=== PATIENT | male | born 1965 | race Two or more races ===

== ENCOUNTER 2016-06-19 18:26 | Inpatient (IN) | payer MEDICARE, MEDICAID ==
[2016-06-19] MEDS ORDERED: Sodium Chloride 0.9% 1,000 ML IV ONE ×2 (18:58→19:42)
--- NOTE | 2016-06-19 20:23 | ED Physician Chart ---
Chief Complaint/HPI - Patient Information Date Seen:: 06/19/16 Time Seen:: 18:30 Chief Complaint:: nausea History of Present Illness:: 50-year-old male history of diabetes and end-stage renal disease on dialysis, presents with acute, constant, moderate, nausea with associated vomiting that started about 3-4 hours prior to arrival. Allergies:: Allergies Allergy/AdvReac Type Severity Reaction Status Date / Time No Known Allergies Allergy Verified 06/19/16 18:46 Vitals:: Vital Signs - 8 hr 06/19/16 18:47 Temp 98.5 F HR 89 RR 16 BP 200/91 O2 Sat % 97 Historian:: Patient Review:: Nurse's Note Reviewed Review of Systems - Review of Systems Other: Complete system review otherwise unremarkable except as noted in HPI. Past Medical History - Past Medical History Past Medical History: HTN, DM, ESRD, Other (blindness) Family History: None Social History: Non Smoker, No Alcohol, No Drug Use, Care Facility Surgical History: other (venous shunt) Psychiatricy History: None Medication: Reviewed Family Medical History - Family Member Mother History Unknown: Yes Ethnicity: Living Status: Still Living Hx Family Cancer: No Hx Family Coronary Artery Disease: No Hx Family Congestive Heart Failure: Yes Hx Family Hypertension: Yes Hx Family Diabetes: Yes Hx Family Seizures: No Hx Family Dementia: No Hx Family AIDS: No Hx Family HIV: No Hx Family COPD: No Hx Family Hepatitis: No Hx Family Psychiatric Problems: No Hx Family Tuberculosis: No Physical Exam - Physical Examination Other:: INITIAL VITAL SIGNS: Reviewed by me GENERAL: Alert and interactive. No acute distress HEAD: Head is normocephalic and atraumatic EYES: EOMI. . No scleral icterus. No conjunctival injection ENT: Moist mucous membranes. NECK: Supple. No masses. Full range of motion RESPIRATORY: No tachypnea. Clear breath sounds bilaterally. No wheezing, rales, or rhonchi CV: Regular rate and rhythm. No murmurs, rubs, or gallops ABDOMEN: Soft, non-distended, non-tender. No guarding. No rebound. No masses. EXTREMITIES: Bilateral lower extremity amputations. SKIN: Warm and dry. No obvious rashes. NEUROLOGIC: Alert and oriented. Face is symmetric. Speech is normal. Moves all extremities equally. Motor and sensory distally intact. Labs/Radiology/EKG Results - Lab Results Results: Lab Results 06/19/16 06/19/16 06/19/16 Range/Units 20:14 20:14 20:48 WBC 3.2 L D (4.8-10.8) Th/cmm RBC 2.10 L (4.30-5.70) Mil/cmm Hgb 6.5 L* (13.2-17.3) gm/dL Hct 19.1 L* D (39.0-49.0) % MCV 90.8 (80-99) fl MCH 30.7 H (26.0-30.0) pg MCHC Differential 33.8 (28.0-36.0) pg RDW 15.6 (11.5-20.0) % Plt Count 47 L D (150-400) Th/cmm MPV 8.3 fl Band Neutrophils % 1 (0-10) % Neutrophils (Manual) 81 H (40-80) % Lymphocytes 11 L (20-50) % Monocytes 5 (2-10) % Eosinophils 1 (0-5) % Basophils 1 (0-3) % Platelet Estimate DECREASED PLATELETS (NORMAL) Platelet Morphology NORMAL (NORMAL) Anisocytosis 1+ RBC Morph Micro Appear ABNORMAL (NORMAL) Sodium 142 (136-145) mEq/L Potassium 1.7 L* (3.5-5.1) mEq/L Chloride 124 H (98-107) mEq/L Carbon Dioxide 13.1 L (21.0-31.0) mEq/L Anion Gap 6.6 L (7.0-16.0) BUN 14 (7-25) mg/dL Creatinine 1.6 H (0.7-1.3) mg/dL Est GFR ( Amer) 59.4 (>90) ml/min Est GFR (Non-Af Amer) 49.1 ml/min BUN/Creatinine Ratio 8.8 Glucose 122 H (70-105) mg/dL Whole Bld Lactic Acid 0.41 L (0.60-2.00) mmol/L Calcium 4.0 L* (8.6-10.3) mg/dL Total Bilirubin 0.4 (0.3-1.0) mg/dL AST 9 L (13-39) U/L ALT 8 (7-52) U/L Alkaline Phosphatase 108 H (34-104) U/L Total Protein 3.3 L (6.0-8.3) gm/dL Albumin 1.6 L (4.2-5.5) gm/dL Globulin 1.7 gm/dL Albumin/Globulin Ratio 0.9 L (1.0-1.8) ED Septic Shock - . Is Septic Shock (SBP<90, OR Lactate>4 mmol\L) present?: No - <6hrs of presentation: Vital Signs: Vital Signs - 8 hr 06/19/16 18:47 Temp 98.5 F HR 89 RR 16 BP 200/91 O2 Sat % 97 Reassessment (Disposition) - Reassessment Reassessment:: This is a renal dialysis patient. Has presented with acute nausea vomiting. Has associated cough. He has severe anemia of 6.5. Has severe hypokalemia and hypocalcemia. Gave oral potassium. He is hemodynamically stable at this point , however he will likely transfusion. He'll need to be closely monitored. Discussed the case with his primary care physician who expressed good understanding of the case. He will admit the patient to his service for further workup and treatment. Reassessment Condition:: Unchanged - Diagnosis Diagnosis:: Severe anemia Severe hypokalemia Severe hypocalcemia Diabetes mellitus Hypertension End-stage renal disease Leukopenia - Patient Disposition Discharge/Transfer:: Acute Care w/in this hosp Admitted to:: Med/Surg Admitting Medical Physician:: Wolfgang Araiza Time:: 20:34 Condition at Disposition:: Stable ED Discharge Plan - Patient Disposition Admit/Discharge/Transfer: Acute Care w/in this hosp
[2016-06-19 20:24] LABS: MEAN CELL VOLUME 90.8 fl (80-99); MEAN CORPUSCULAR HEMOGLOBIN 30.7 pg (26.0-30.0); MEAN CORPUSCULAR HGB CONC 33.8 pg (28.0-36.0); MEAN PLATELET VOLUME 8.3 fl; RED CELL DISTRIBUTION WIDTH 15.6 % (11.5-20.0); WHITE BLOOD COUNT 3.2 Th/cmm (4.8-10.8)
[2016-06-19 20:31] LABS: HEMATOCRIT 19.1 % (39.0-49.0); HEMOGLOBIN 6.5 gm/dL (13.2-17.3)
[2016-06-19 20:32] LABS: PLATELET COUNT 47 Th/cmm (150-400)
[2016-06-19] MEDS ORDERED: Prochlorperazine 5 mg/mL 2mL Vial IVP STA (20:33)
[2016-06-19] MEDS ORDERED: Dexamethasone Sodium Phos 4 mg/mL Vial IVP STA (20:34)
[2016-06-19] MEDS ORDERED: Metoclopramide 5 mg/mL 2mL Vial IVP STA (20:34)
[2016-06-19 20:36] LABS: ALB/GLOB RATIO 0.9 (1.0-1.8); ANION GAP 6.6 (7.0-16.0); BILIRUBIN,TOTAL 0.4 mg/dL (0.3-1.0); BUN/CREATININE RATIO 8.8; CARBON DIOXIDE 13.1 mEq/L (21.0-31.0); CREATININE - SERUM 1.6 mg/dL (0.7-1.3)
[2016-06-19] MEDS ORDERED: cefTRIAXone 1 GM in Sodium Chloride 0.9% 50 ML IV ONE (20:37)
[2016-06-19] MEDS ORDERED: Prochlorperazine 5 mg/mL 2mL Vial ONE (20:39)
[2016-06-19] MEDS ORDERED: Dexamethasone Sodium Phos 10 mg/mL PF Vial ONE (20:39)
[2016-06-19] MEDS ORDERED: Metoclopramide 5 mg/mL 2mL Vial ONE (20:40)
[2016-06-19 20:51] LABS: POTASSIUM SERUM 1.7 mEq/L (3.5-5.1)
[2016-06-19] MEDS ORDERED: Potassium Chloride 20 mEq ER Tab PO ONE ×2 (20:52→21:00)
[2016-06-19 21:00] LABS: ANISOCYTOSIS 1+; BAND NEUTROPHILE 1 % (0-10); BASOPHIL 1 % (0-3); EOSINOPHIL 1 % (0-5); NEUTROPHILS 81 % (40-80); PLATELET ESTIMATE DECREASED PLATELETS (NORMAL); PLATELET MORPHOLOGY NORMAL (NORMAL); TOTAL CELLS COUNTED 100
[2016-06-20] MEDS ORDERED: Calcium Gluconate 1 GM in Dextrose 5% 100 ML IV ONE (06:39)
[2016-06-20] MEDS: INSULIN ASPART SLIDING SCALE 100 UNITS/ML UNIT SUBQ SCH ×4 (07:14→21:19)
[2016-06-20] MEDS: NIFEdipine 30 mg ER Tab PO SCH ×2 (08:31→16:44)
[2016-06-20] MEDS: Calcium Carb/Vit D 500 mg/200 U Tab PO SCH (08:32)
[2016-06-20] MEDS ORDERED: NIFEDIPINE 60 MG PO SCH (09:00)
[2016-06-20] MEDS ORDERED: Non-Formulary Item 1 EA (Cranberry Fruit Extract [Cranberry] 425 MG) PO SCH (09:00)
[2016-06-20] MEDS ORDERED: AMINO ACIDS PO SCH (09:00)
[2016-06-20] MEDS ORDERED: PROTEIN HYDROLYS PO SCH (09:00)
--- NOTE | 2016-06-20 09:34 | Diagnostic Imaging Report ---
Portable chest x-ray History: Cough Allowing for portable technique the heart size is normal. No focal pulmonary parenchymal processes. No hilar or mediastinal abnormalities. Impression: No acute abnormalities.
--- NOTE | 2016-06-20 10:04 | History & Physical ---
CHIEF COMPLAINT: Fatigue and weakness. HISTORY OF PRESENT ILLNESS: This is a 50-year-old male who presents to [facility] ER, transferred from custodial [facility] due to increased fatigue, weakness, nausea, vomiting noted by staff members. 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 The patient had initial lab work done in the ER, which revealed a white count of 3.2, hemoglobin 6.5, hematocrit 19.1, platelets 47,000. Chem-7, potassium was noted to be low at 1.7, sodium 142, chloride 124, bicarbonate 13, BUN 14, creatinine 1.6, glucose 122. His calcium level was noted to be at around 4.0. AST was 9, ALT 8, alkaline phosphatase 108, albumin was 1.6. REVIEW OF SYSTEMS: Essentially negative except what was stated in the HPI. ALLERGIES: No known drug allergies. SOCIAL HISTORY: The patient is a resident at [facility]. FAMILY HISTORY: Noncontributory. PHYSICAL EXAMINATION VITAL SIGNS: Temperature 97.4, pulse 90, blood pressure 181/87 and respirations 18. GENERAL: This is a 50-year-old male, well developed, well nourished, appears stated age. HEENT: Eyes: The patient noted to be blind in both right and left eye. Normocephalic, atraumatic. Ears: TMs intact. NECK: Supple, good range of motion. No thyromegaly. No lymphadenopathy. CARDIOVASCULAR: Regular rate and rhythm, no murmurs, rubs or clicks. LUNGS: Clear to auscultation, no rales, rhonchi or wheezing. ABDOMEN: Soft, nontender, nondistended. Bowel sounds are active in all 4 quadrants. No rebound tenderness, no rigidity, no guarding. EXTREMITIES: The patient noted to have left BKA and right AKA. ASSESSMENT AND PLAN: 1. Anemia with hemoglobin of 6.5. We will type and screen for 2 units of packed red blood cells and transfuse, repeat H and H after second unit. 2. Hypokalemia. Potassium 1.7. The patient was given 80 mEq of KCl p.o. in the ER. We will repeat potassium level for this morning. 3. End-stage renal disease, on hemodialysis. We will order Nephrology consult with Dr. Perez. 4. Rule out sepsis. Blood cultures x 2, urine C and S. 5. The patient given Rocephin 1 gram IV every day. 6. Diabetes mellitus, type 2. We will continue current medications for diabetes. 7. Hypertension. The patient to continue on current blood pressure medication. 8. Gastroesophageal reflux disease. 9. Hypocalcemia. We will order calcium 1 gram IV piggyback. 10. Pancytopenia. We will order hem-oncology consult with Dr. Chen. 11. Intractable nausea and vomiting. We will order patient Reglan and Zofran. The patient put on Protonix. We will order a GI consult with Dr. Mccartney. We will order amylase and lipase as well. JOB# [id number]
[2016-06-20 10:25] LABS: % BASOPHILS 0.9 % (0.0-2.0); % LYMPHOCYTES 7.7 % (20.0-50.0); % MONOCYTES 9.9 % (2.0-10.0); % NEUTROPHILS 80.5 % (40.0-80.0); MEAN CELL VOLUME 88.6 fl (80-99); MEAN CORPUSCULAR HEMOGLOBIN 29.9 pg (26.0-30.0); MEAN CORPUSCULAR HGB CONC 33.7 pg (28.0-36.0); MEAN PLATELET VOLUME 9.1 fl; NEUTROPHILE ABSOLUTE 4.6 Th/cmm (1.8-8.0); PLATELET COUNT 77 Th/cmm (150-400); RED BLOOD COUNT 4.19 Mil/cmm (4.30-5.70); RED CELL DISTRIBUTION WIDTH 16.7 % (11.5-20.0)
[2016-06-20 10:26] LABS: HEMOGLOBIN 12.5 gm/dL (13.2-17.3); WHITE BLOOD COUNT 5.9 Th/cmm (4.8-10.8)
[2016-06-20 10:27] LABS: HEMATOCRIT 37.1 % (39.0-49.0)
[2016-06-20 10:43] LABS: AMYLASE SERUM 12 U/L (29-103); CALCIUM SERUM 8.6 mg/dL (8.6-10.3); CARBON DIOXIDE 23.9 mEq/L (21.0-31.0); LIPASE 6 U/L (11-82); POTASSIUM SERUM 4.9 mEq/L (3.5-5.1)
[2016-06-20 10:54] LABS: INR 1.53 (0.5-1.4); PROTHROMBIN TIME (TEST) 15.5 SECONDS (9.5-11.5)
[2016-06-20 11:13] LABS: CREATININE - SERUM 4.3 mg/dL (0.7-1.3)
[2016-06-20] MEDS ORDERED: WARFARIN SODIUM PO SCH ×2 (13:00→17:00)
[2016-06-20] MEDS: Ferrous Sulfate 325 MG TAB PO SCH ×2 (16:51→21:12)
[2016-06-20] MEDS: WARFARIN SODIUM PO SCH (16:51)
--- NOTE | 2016-06-20 18:51 | Admit Criteria Form ---
Admit Criteria Forms - Admit Criteria Diagnosis: DIABETES Clinical Indications for Admission to Inpatient Care (Place 'X' for any and all applicable criteria): Admission is indicated by presence of ALL (if I & II) or ANY ONE (if III or IV) of the following (1)(2)(3)(4): [X]I. Diabetes is uncontrolled as indicated by ANY ONE of the following: [ ]a) Diabetic ketoacidosis as indicated by ALL of the following (8): [ ]i) Hyperglycemia (eg, plasma glucose greater than 200 mg/ dL (11.1 mmol/L)) [ ]ii) Acidosis (eg, arterial pH less than 7.30, serum bicarbonate level less than 15 mEq/L (mmol/L)) [ ]iii) Moderate ketonuria or ketonemia [ ]b) Hyperglycemic hyperosmolar state as indicated by ALL of the following(9)(10): [ ]i) Neurologic dysfunction (eg, stupor, coma, hemiparesis , seizure)(13) [ ]ii) Plasma glucose greater than 600 mg/dL (33.3 mmol/L) [ ]iii) Serum osmolality greater than 320 mOsm/kg (mmol/kg) [X]c) Severe signs or symptoms secondary to hyperglycemia indicated by ANY ONE of the following: [ ]i) Altered mental status(10) [ ]ii) Significant hypovolemia or dehydration [X]iii) Intractable nausea or vomiting [ ]iv) Unexplained fever or severe infection [X]v) Severe electrolyte abnormality (eg, hypokalemia, hyperkalemia, hypernatremia) [ ]II. Management at other levels of care (Also use Diabetes: Observation Care as appropriate) is not feasible because of ANY ONE of the following: [ ]a) Condition was not adequately corrected with treatment at other levels of care. [ ]b) Treatment at other levels of care is not appropriate because of condition severity (eg, hyperosmolar coma). [ ]III. Contraindications and/or Inappropriate clinical situations for Observational Care in patients with Diabetes, when ANY ONE of the following is required: [ ]a) Patient require specific diagnostic workup or therapeutic intervention 22 [ ]b) Patient with abnormal vital signs or altered mental status 23 [ ]IV. General contraindications and/or Inappropriate clinical situations for Observational Care in patients with Diabetes, when ANY ONE of the following is required: [ ]a) Prediction of prolongation of LOS based on ANY ONE of the following may be considered as a contraindication for observational care 2, 3, 4, 5, 6, 7, 8, 9, 10, 11 [ ]i) Age > 65 yrs. [ ]ii) Patient arriving by ambulance [ ]iii) Patient with high acuity [ ]iv) Patient requiring vital sign monitoring [ ]v) Patient on IV medication [ ]b) Systolic blood pressures 180mmHg 3,12 [ ]c) Patient with altered mental status including delirium and other alteration of consciousness, (3) [ ]d) Patient whose discharge disposition will be to a nursing home home or rehabilitation home should not be managed in Emergency Department Observation Unit. CMS rule requires 3 days hospital stay before such placement.3,13 [ ]e) Patient with failure to thrive due to broad array of etiologies 3,16,17 [ ]f) Inability to ambulate 3,14 Extended stay beyond goal length of stay may be needed for(3)(20): [ ]a) Treatment of precipitating causes [ ]b) Development of hypoglycemia [ ]c) Complications of treatment [ ]d) Complications of decompensated diabetes (eg, acute gastric dilatation, persistent metabolic or neurologic derangement) [ ]e) Active Comorbidities [ ]f) Older patients( 65 years or older) The original [facility] content created by [employer] has been revised. The portions of the content which have been revised are identified through the use of italic text or in bold,and [facility] has neither reviewed nor approved the modified material. All other unmodified content is copyright [facility] [employer]. Please see references footnoted in the original [facility] [employer] edition 2016 Admit Criteria Met?: Yes
[2016-06-20] MEDS: Insulin Detemir 100 units/mL 10mL Vial SUBQ SCH (21:08)
--- NOTE | 2016-06-21 01:08 | Consultation ---
REASON FOR CONSULT: Nausea, vomiting. HISTORY OF PRESENT ILLNESS: A 50-year-old male with history of diabetes, atrial fibrillation on Coumadin, significant complications from diabetes including peripheral vascular disease with prior BKA and AKA, significant diabetic disease of the eye. The patient presents with increasing weakness and nausea and vomiting with severe electrolyte abnormalities. The patient also has severe anemia on admission with hemoglobin 6.5. Denies any overt GI bleeding. PAST MEDICAL HISTORY: As per HPI. In addition, the patient has end-stage renal disease, on dialysis. PAST SURGICAL HISTORY: AV fistula formation. MEDICATIONS: Please see medication reconciliation form. ALLERGIES: No known drug allergies. FAMILY HISTORY: No family history of GI malignancies. REVIEW OF SYSTEMS: As per HPI. PHYSICAL EXAMINATION: VITAL SIGNS: Temperature is 97.4, pulse 94, respirations 18, blood pressure 198/105 GENERAL: No acute distress. Somnolent. CARDIOVASCULAR: Regular rhythm. ABDOMEN: Soft. LABORATORY DATA: Initially White count 3.2, hemoglobin 6.5. MCV is 90.8, platelets are 47, sodium was 1.7. ASSESSMENT AND PLAN: A 50-year-old male with severe diabetic disease, end-stage renal disease on dialysis, presenting with severe anemia, weakness, nausea, vomiting. The patient's anemia, likely multifactorial due to chronic renal disease, also due to anemia of chronic disease. No obvious overt GI bleeding source seen, so GI source is less likely. The patient also does have a pancytopenia and is currently being evaluated by Hematology. The patient's nausea, vomiting, most likely from gastroparesis given his significant systemic disease from his diabetes; however, we will plan for EGD to rule out any other causes for the patient has nausea and vomiting, may consider eventual colonoscopy as well. The patient has been likely unable to tolerate bowel prep at this time. Thank you for this consult, for allowing us to participate in the care of this patient. [facility]# [id number]
--- NOTE | 2016-06-21 05:40 | Consultation ---
ATTENDING PHYSICIAN: Wolfgang Araiza D.O. CONSULTING PHYSICIAN: Saleem Hammer M.D. REASON FOR CONSULTATION: Electrolyte imbalance and fluid management. HISTORY OF PRESENT ILLNESS: This is a 50-year-old male with past medical history of end-stage renal disease on hemodialysis, who came in because of cough. A few hours prior to admission, he started coughing. He could not control his cough. This caused him to vomit. He also complained of generalized weakness and easy fatigability and some dyspnea on exertion for almost a few weeks now. He was subsequently brought to the Emergency Room. His chest x-ray revealed no acute disease. His hemoglobin/hematocrit were 6.5/19.1. He is on Coumadin due to his chronic AFib. He was transfused 2 units packed RBC. Potassium level was also low at 1.2. He received 80 mEq of potassium and his potassium improved to 4.9. Calcium was 4, but spontaneously corrected to 8.6. He had no fever/chills, diarrhea, abdominal pain, dysuria, hematemesis, hemoptysis, melena nor hematochezia. PAST MEDICAL HISTORY: 1. End-stage renal disease, on hemodialysis. 2. Type 2 diabetes mellitus. 3. Diabetic retinopathy. 4. Legally blind for the last 6 months. 5. Peripheral arterial disease. 6. Anemia of chronic kidney disease. 7. Essential hypertension. 8. GERD. 9. Chronic atrial fibrillation. PAST SURGICAL HISTORY: 1. Status post creation of right AV fistula. 2. Status post right AKA and left BKA. CURRENT MEDICATIONS: He is currently on Coumadin, acetaminophen, calcium acetate, calcium carbonate, carvedilol, dexamethasone, guaifenesin, detemir, lisinopril, Reglan, nifedipine, ondansetron, pantoprazole, potassium, prochlorperazine, tamsulosin, ceftriaxone and Tramadol. ALLERGIES: No known drug allergies. SOCIAL HISTORY: No history of alcohol or tobacco abuse. He used to drive a truck with cargo delivery. FAMILY HISTORY: This is predominant for diabetes. REVIEW OF SYSTEMS: GENERAL: He did complain of generalized weakness. Appetite had been fair. No fever, no chills. HEENT: He is legally blind. No headaches and no dizziness. Hearing acuity remains within acceptable limits. CARDIORESPIRATORY: He has history of hypertension, chronic atrial fibrillation. He came in because of dry cough. No congestion. No shortness of breath, chest pain, palpitations and no diaphoresis. GASTROINTESTINAL: He had vomiting due to his persistent cough. No abdominal pain or cramping, hematemesis, melena, hematochezia nor diarrhea. ENDOCRINE: History of diabetes. No thyroid abnormalities nor dyslipidemia. GENITOURINARY: History of kidney failure on hemodialysis. Rarely urinates, but he denied any dysuria nor hematuria. HEMATOLOGIC: He has severe anemia, likely acute process on top of his chronic kidney disease. NEUROPSYCH: No syncopal episode nor seizure activity. Possible diabetic neuropathy. PHYSICAL EXAMINATION: NEUROLOGIC: The patient is alert, verbal and comfortable now. VITAL SIGNS: Blood pressure is 177/96, pulse 85 and temperature 98.6 degrees. SKIN: Good turgor and warm. No rash and no jaundice appreciated. HEENT: Head normocephalic and atraumatic. Eyes: The patient is legally blind, anicteric sclerae. Pale conjunctivae. Nose: Midline nasal septum. Mouth: Moist mucosa with adequate dentition. NECK: Supple. No adenopathy, no thyromegaly and no bruits. Trachea palpated in the midline. CHEST AND CVS: S1, S2. No rub, murmur nor gallop appreciated. Point of maximal impulse fifth intercostal space, left midclavicular line. No abdominal or femoral bruits appreciated. LUNGS: Equal expansion. No use of accessory muscles. No supraclavicular retractions. Decreased breath sounds but clear to auscultation without any wheeze. ABDOMEN: Mildly globular, soft. Positive for bowel sounds. No bruits either diastolic or systolic. RECTAL: Lax sphincter tone. GENITOURINARY: Normal appearing male genitalia. MUSCULOSKELETAL: No effusions present in his joints with adequate range of motion. EXTREMITIES: He has a right AKA, left BKA, good bruit and thrill on the right AV fistula. NEUROLOGIC: Alert and oriented. Motor is 5/5. Cranial nerves 2-12 intact. Sensory intact. LABORATORY DATA: Sodium 133, potassium 4.9, chloride 102, bicarbonate 23, BUN 30, creatinine 4.3, glucose 210, calcium 8.6 and magnesium 2.1. White count 5.9, hemoglobin 12.5, hematocrit 37.1, polys 8.5% and platelets 77. PT is 15.5, INR 1.53, amylase 12, lipase 6 and albumin 1.6. IMPRESSION: 1. End-stage renal disease, on hemodialysis. 2. Severe and [id number]-bu-laqlhai anemia secondary to possible GI blood loss on Coumadin. 3. Chronic atrial fibrillation. 4. Type 2 diabetes mellitus with CKD. 5. Essential hypertension with CKD. 6. Diabetic retinopathy. 7. Legally blind. 8. Peripheral arterial disease, status post right AKA and left BKA. 9. GERD. 10. Hyperkalemia, possible due to his dialysis treatment. 11. Hypocalcemia with spontaneous correction. 12. Possible acute bronchitis due to his cough. 13. Thrombocythemia may be heparin induced. 14. Dry cough likely due to his lisinopril. 15. Nausea and vomiting, brought about by his persistently cough. 16. Severe malnutrition. PLAN: 1. Hemodialysis as scheduled. 2. Add Epogen with iron. 3. Stool for occult blood. 4. Follow up electrolytes as well as CBC. 5. Discontinue lisinopril due to dry cough. 6. Increase Coreg since lisinopril will be discontinued. 7. Protein powder with ____ consult. Thank you, Dr. Araiza for this consult. I will follow the patient closely with you. JOB# [id number]
[2016-06-21] MEDS: INSULIN ASPART SLIDING SCALE 100 UNITS/ML UNIT SUBQ SCH ×4 (06:47→21:10)
[2016-06-21 06:59] LABS: % EOSINOPHILS 2.5 % (0.0-5.0); % LYMPHOCYTES 12.3 % (20.0-50.0); % MONOCYTES 10.4 % (2.0-10.0); % NEUTROPHILS 74.8 % (40.0-80.0); HEMATOCRIT 36.3 % (39.0-49.0); HEMOGLOBIN 12.4 gm/dL (13.2-17.3); MEAN CELL VOLUME 89.4 fl (80-99); MEAN CORPUSCULAR HEMOGLOBIN 30.4 pg (26.0-30.0); MEAN PLATELET VOLUME 9.6 fl; NEUTROPHILE ABSOLUTE 4.4 Th/cmm (1.8-8.0); PLATELET COUNT 83 Th/cmm (150-400); RED BLOOD COUNT 4.06 Mil/cmm (4.30-5.70); RED CELL DISTRIBUTION WIDTH 16.4 % (11.5-20.0); WHITE BLOOD COUNT 5.8 Th/cmm (4.8-10.8)
[2016-06-21 07:06] LABS: INR 1.42 (0.5-1.4); PROTHROMBIN TIME (TEST) 14.4 SECONDS (9.5-11.5)
[2016-06-21 07:09] LABS: ANION GAP 17.8 (7.0-16.0); BUN/CREATININE RATIO 7.7; CALCIUM SERUM 8.5 mg/dL (8.6-10.3); CARBON DIOXIDE 21.7 mEq/L (21.0-31.0); PHOSPHOROUS 3.8 mg/dL (2.5-5.0); POTASSIUM SERUM 5.5 mEq/L (3.5-5.1)
[2016-06-21 07:30] LABS: CREATININE - SERUM 5.2 mg/dL (0.7-1.3)
[2016-06-21] MEDS: Calcium Carb/Vit D 500 mg/200 U Tab PO SCH (08:57)
[2016-06-21] MEDS: Ferrous Sulfate 325 MG TAB PO SCH ×3 (08:58→21:11)
[2016-06-21] MEDS: NIFEdipine 30 mg ER Tab PO SCH ×2 (09:43→16:43)
[2016-06-21 09:45] LABS: INR 1.44 (0.5-1.4); PROTHROMBIN TIME (TEST) 14.6 SECONDS (9.5-11.5)
--- NOTE | 2016-06-21 10:41 | Consultation ---
HEMATOLOGY AND ONCOLOGY CONSULTATION REFERRING PHYSICIAN: Dr. Araiza. REASON FOR CONSULTATION: Anemia and thrombocytopenia. HISTORY OF PRESENT ILLNESS: The patient is a 50-year-old male resident of a nursing facility with history of diabetes, peripheral vascular disease, diabetic retinopathy and blindness, hypertension and chronic renal failure. He presented with weakness and found to have severe anemia and thrombocytopenia and electrolyte abnormalities. The patient was transfused for hemoglobin of 6.5 and now hemoglobin was 12.5. His admission platelet was 47 and now his platelets are 177. He did not have any reported bleeding. MEDICATIONS: Reviewed. PAST MEDICAL HISTORY: As mentioned above. PHYSICAL EXAMINATION: GENERAL: The patient is awake, not in distress, sitting at bed. VITAL SIGNS: Stable. He is blind in both eyes. NECK: No peripheral lymphadenopathy. CHEST: Good air entry. ABDOMEN: Soft. EXTREMITIES: Right above knee and left below-knee amputation. LABORATORY DATA: INR ____. Potassium from admission was 1.7, now 4.9, creatinine from admission is 1.6, now is 5.2. Hemoglobin and platelets as above. ASSESSMENT: Severe anemia on admission, likely blood loss. The patient will have GI endoscopy today. I will obtain comprehensive anemia workup and stool occult blood. The anemia could be multifactorial secondary to chronic kidney disease with the ____ blood loss or other nutritional deficiency. High INR, possible disseminated intravascular coagulation or vitamin K deficiency. I will obtain DIC panel and administer vitamin K for this patient. Thank you Dr. Araiza for the opportunity to participate in this interesting case. JOB# [id number]
[2016-06-21] MEDS ORDERED: Meperidine 25 mg/mL 1mL Syr IVP PRN (11:07)
[2016-06-21] MEDS ORDERED: Lactated Ringer 1,000 ML IV SCH (11:15)
[2016-06-21] MEDS: Guaifenesin DM 10 ML UDC PO PRN ×2 (12:50→23:57)
--- NOTE | 2016-06-21 12:50 | Operative Report ---
PROCEDURE: Esophagogastroduodenoscopy with biopsy. PREOPERATIVE DIAGNOSES: Nausea, vomiting and anemia. POSTPROCEDURE DIAGNOSES: 1. Mild retained fluid in the esophagus. 2. Moderate gastroparesis. 3. Mild gastritis, status post biopsy and SANJEEV test. INDICATION: A 50-year-old male with a history of end-stage renal disease, hemodialysis dependent, diabetes mellitus, hypertension and GERD undergoing an upper endoscopy for severe anemia with hemoglobin of 5 requiring blood transfusions. CONSENT: Informed consent was obtained from the patient prior to procedure after explaining risks, benefits and alternatives including but not limited to infection, bleeding, perforation, , sedation. ANESTHESIA: Monitored anesthesia care per Dr. Jorgensen. DESCRIPTION OF PROCEDURE AND FINDINGS: The procedure took place as an inpatient in the GI suite of [facility]. The patient was kept in a left lateral position. Adequate sedation was achieved with above medications. An Olympus diagnostic upper endoscope was advanced via the patient's mouth and into the esophagus. In the esophagus, there was a copious amount of whitish fluid, likely secretions. This was lavaged to clear. No obvious stricture or mass lesion was identified. The Z-line was noted at 40 cm from the gums and appeared normal. Retroflexion in the stomach revealed no GE junction masses or varices. There is a moderate amount of retained food in the gastric fundus, suggestive of gastroparesis. There was mild gastritis of the antrum. Biopsies obtained from antrum and mid body and submitted for CLOtest as well as pathology. The pyloric channel and duodenum up to second portion appeared normal. The scope was then withdrawn. The patient tolerated the procedure well and there were no complications noted. RECOMMENDATIONS: 1. Follow up biopsy results. 2. Protonix. 3. Add Reglan. 4. Check stool occult blood test. 5. Consider colonoscopy if fecal occult blood test is positive and/or there is evidence of iron deficiency anemia and/or if procedure has not been done recently. Thank you, Dr. Wolfgang Araiza for involving us in the care of your patient. If you have any further questions, please call us. JOB# [id number] [facility]
[2016-06-21] MEDS: Metoclopramide 5 mg/mL 2mL Vial IVP SCH ×2 (13:07→21:10)
--- NOTE | 2016-06-21 13:58 | General Progress Note ---
Subjective - Review of Systems Service Date: 06/21/16 Subjective: alert, no N/V, no obvious bleed Objective - Results Result Diagrams: 06/21/16 05:54 06/21/16 05:54 Recent Labs: Laboratory Last Values WBC 5.8 Th/cmm (4.8-10.8) 06/21/16 05:54 RBC 4.06 Mil/cmm (4.30-5.70) L 06/21/16 05:54 Hgb 12.4 gm/dL (13.2-17.3) L 06/21/16 05:54 Hct 36.3 % (39.0-49.0) L 06/21/16 05:54 MCV 89.4 fl (80-99) 06/21/16 05:54 MCH 30.4 pg (26.0-30.0) H 06/21/16 05:54 MCHC Differential 34.0 pg (28.0-36.0) 06/21/16 05:54 RDW 16.4 % (11.5-20.0) 06/21/16 05:54 Plt Count 83 Th/cmm (150-400) L 06/21/16 05:54 MPV 9.6 fl 06/21/16 05:54 Neutrophils % 74.8 % (40.0-80.0) 06/21/16 05:54 Band Neutrophils % 1 % (0-10) 06/19/16 20:14 Lymphocytes % 12.3 % (20.0-50.0) L 06/21/16 05:54 Monocytes % 10.4 % (2.0-10.0) H 06/21/16 05:54 Eosinophils % 2.5 % (0.0-5.0) 06/21/16 05:54 Basophils % 0.0 % (0.0-2.0) 06/21/16 05:54 Neutrophils (Manual) 81 % (40-80) H 06/19/16 20:14 Lymphocytes 11 % (20-50) L 06/19/16 20:14 Monocytes 5 % (2-10) 06/19/16 20:14 Eosinophils 1 % (0-5) 06/19/16 20:14 Basophils 1 % (0-3) 06/19/16 20:14 Platelet Estimate DECREASED PLATELETS (NORMAL) 06/19/16 20:14 Platelet Morphology NORMAL (NORMAL) 06/19/16 20:14 Anisocytosis 1+ 06/19/16 20:14 RBC Morph Micro Appear ABNORMAL (NORMAL) 06/19/16 20:14 PT 14.6 SECONDS (9.5-11.5) H 06/21/16 09:00 INR 1.44 (0.5-1.4) H 06/21/16 09:00 Sodium 133 mEq/L (136-145) L 06/21/16 05:54 Potassium 5.5 mEq/L (3.5-5.1) H 06/21/16 05:54 Chloride 99 mEq/L (98-107) 06/21/16 05:54 Carbon Dioxide 21.7 mEq/L (21.0-31.0) 06/21/16 05:54 Anion Gap 17.8 (7.0-16.0) H 06/21/16 05:54 BUN 40 mg/dL (7-25) H 06/21/16 05:54 Creatinine 5.2 mg/dL (0.7-1.3) H* 06/21/16 05:54 Est GFR ( Amer) 15.2 ml/min (>90) 06/21/16 05:54 Est GFR (Non-Af Amer) 12.6 ml/min 06/21/16 05:54 BUN/Creatinine Ratio 7.7 06/21/16 05:54 Glucose 170 mg/dL (70-105) H 06/21/16 05:54 POC Glucose 138 MG/DL (70 - 105) H 06/21/16 10:47 Hemoglobin A1c % 6.9 % (4.0-6.0) H 06/20/16 09:56 Whole Bld Lactic Acid 0.41 mmol/L (0.60-2.00) L 06/19/16 20:48 Calcium 8.5 mg/dL (8.6-10.3) L 06/21/16 05:54 Phosphorus 3.8 mg/dL (2.5-5.0) 06/21/16 05:54 Magnesium 2.1 mg/dL (1.9-2.7) 06/20/16 09:56 Total Bilirubin 0.4 mg/dL (0.3-1.0) 06/19/16 20:14 AST 9 U/L (13-39) L 06/19/16 20:14 ALT 8 U/L (7-52) 06/19/16 20:14 Alkaline Phosphatase 108 U/L (34-104) H 06/19/16 20:14 Total Protein 3.3 gm/dL (6.0-8.3) L 06/19/16 20:14 Albumin 1.6 gm/dL (4.2-5.5) L 06/19/16 20:14 Globulin 1.7 gm/dL 06/19/16 20:14 Albumin/Globulin Ratio 0.9 (1.0-1.8) L 06/19/16 20:14 Amylase 12 U/L (29-103) L 06/20/16 09:56 Lipase 6 U/L (11-82) L 06/20/16 09:56 Blood Type A POSITIVE 06/19/16 22:54 Antibody Screen NEGATIVE 06/19/16 22:54 Crossmatch See Detail 06/19/16 22:54 - Physical Exam Vitals and I&O: Vital Signs Temp 98.6 F 06/21/16 08:00 Pulse 75 06/21/16 09:45 Resp 18 06/21/16 08:00 BP 147/70 06/21/16 09:45 Pulse Ox 96 06/21/16 08:00 Intake & Output 06/20/16 06/21/16 06/21/16 18:59 06:59 18:59 Intake Total 700 200 Balance 700 200 Intake: Oral 700 200 Other: # Voids 2 # Bowel Movements 1 Active Medications: Current Medications Acetaminophen (Tylenol) 650 mg PO Q4H PRN PRN Reason: Pain (Mild) AND TEMP >101 Stop: 08/18/16 21:33 Calcium Acetate (Phoslo) 2,668 mg PO TIDWM [facility] Stop: 08/19/16 07:59 Last Admin: 06/21/16 12:44 Dose: Not Given Calcium/Vitamin D (Oscal W/Vitamin D) 1 tab PO DAILY [facility] Stop: 08/19/16 08:59 Last Admin: 06/21/16 08:57 Dose: Not Given Carvedilol (Coreg) 6.25 mg PO BID [facility] Stop: 08/19/16 08:59 Last Admin: 06/21/16 09:45 Dose: Not Given Carvedilol (Coreg) 12.5 mg PO BID [facility] Stop: 08/19/16 16:59 Last Admin: 06/21/16 09:45 Dose: Not Given Clonidine HCl (Catapres) 0.2 mg PO BID [facility] Stop: 08/19/16 08:59 Last Admin: 06/21/16 09:45 Dose: Not Given Docusate Sodium (Colace) 100 mg PO DAILY [facility] Stop: 08/19/16 08:59 Last Admin: 06/21/16 08:58 Dose: Not Given Epoetin Reinadlo (Epogen) 10,000 units SUBQ MoWeFr [facility] Stop: 08/20/16 15:12 Ferrous Sulfate (Iron) 325 mg PO TID [facility] Stop: 08/19/16 15:14 Last Admin: 06/21/16 08:58 Dose: Not Given Guaifenesin/Dextromethorphan (Robitussin Dm) 10 ml PO Q6HR PRN PRN Reason: Cough Stop: 08/18/16 21:33 Last Admin: 06/21/16 12:50 Dose: 10 ml Lactated Ringer's (Lactated Ringer) 1,000 mls @ 0 mls/hr IV .Q0M DREW PRN Reason: TKO Stop: 06/22/16 11:14 Insulin Aspart (Novolog Insulin Sliding Scale) 0 units SUBQ ACHS DREW PRN Reason: Protocol Stop: 08/19/16 07:29 Last Admin: 06/21/16 12:44 Dose: Not Given Insulin Detemir (Levemir Insulin) 15 units SUBQ HS [facility] Stop: 08/18/16 20:59 Last Admin: 06/20/16 21:08 Dose: Not Given Meperidine HCl (Demerol) 25 mg IVP UD PRN PRN Reason: POST-OP PAIN Stop: 06/22/16 11:06 Metoclopramide HCl (Reglan) 5 mg IVP Q8HR [facility] Stop: 08/20/16 12:59 Last Admin: 06/21/16 13:07 Dose: 5 mg Miscellaneous (Clinical Monitoring) 1 ea MC PRN PRN PRN Reason: RENAL DOSING Stop: 08/20/16 08:19 Nifedipine (Procardia Xl) 60 mg PO BID [facility] Stop: 08/19/16 08:59 Last Admin: 06/21/16 09:43 Dose: Not Given Ondansetron HCl (Zofran) 4 mg IV X1 PRN PRN Reason: Nausea / Vomiting Stop: 06/22/16 11:06 Pantoprazole Sodium (Protonix) 40 mg IVP DAILY [facility] Stop: 08/19/16 08:59 Last Admin: 06/21/16 09:40 Dose: 40 mg Tamsulosin HCl (Flomax) 0.4 mg PO HS [facility] Stop: 08/19/16 20:59 Last Admin: 06/20/16 21:12 Dose: 0.4 mg Tramadol HCl (Ultram) 50 mg PO Q6H PRN PRN Reason: Pain Stop: 08/18/16 21:33 Last Admin: 06/21/16 02:31 Dose: 50 mg Warfarin Sodium 2.5 mg/ (Warfarin Sodium 4 mg) 6.5 mg PO 1400 [facility] Stop: 08/19/16 13:59 Last Admin: 06/20/16 16:51 Dose: Not Given General: Alert, No acute distress HEENT: Atraumatic, Mucous membr. moist/pink Neck: Supple, +2 carotid pulse wo bruit Cardiovascular: Regular rate, Normal S1, Normal S2 Lungs: Other (few rhonchi) Abdomen: Bowel sounds, Soft Extremities: no Edema Neurological: Sensation intact Skin: no Rash - Procedures Procedures: Procedures Procedure Code Date HEMODIALYSIS 39.95 01/02/15 INSERT INDWELLING CATH 57.94 10/18/14 INSERT TEMP BLADDER CATH 74677 10/18/14 Assessment/Plan - Problem List Patient Problems: All Active Problems Bronchitis, acute (Acute) J20.9 Cloudy urine (Acute) R82.90 Nausea (Acute) R11.0 Renal failure (Acute) Urinary retention (Acute) R33.9 - Assessment Assessment: esrd on hd severe anemia on ckd, possible gi bleed chronic A. Fib type 2 dm ess htn legally blind thrombocytopenia hyperkalemia - Plan Plan: schedule for hd in am, no heparin monitor cbc closely kayexalate
[2016-06-21] MEDS: WARFARIN SODIUM PO SCH (15:00)
[2016-06-21] MEDS: Insulin Detemir 100 units/mL 10mL Vial SUBQ SCH ×2 (21:07→21:08)
[2016-06-22] MEDS: Metoclopramide 5 mg/mL 2mL Vial IVP SCH ×3 (06:13→21:44)
[2016-06-22] MEDS: INSULIN ASPART SLIDING SCALE 100 UNITS/ML UNIT SUBQ SCH ×4 (06:36→21:55)
[2016-06-22 07:12] LABS: HEMATOCRIT 37.9 % (39.0-49.0); HEMOGLOBIN 12.5 gm/dL (13.2-17.3); MEAN CELL VOLUME 89.4 fl (80-99); MEAN CORPUSCULAR HEMOGLOBIN 29.5 pg (26.0-30.0); MEAN PLATELET VOLUME 9.4 fl; PLATELET COUNT 96 Th/cmm (150-400); RED BLOOD COUNT 4.23 Mil/cmm (4.30-5.70); RED CELL DISTRIBUTION WIDTH 16.2 % (11.5-20.0); WHITE BLOOD COUNT 6.4 Th/cmm (4.8-10.8)
[2016-06-22 07:22] LABS: INR 1.54 (0.5-1.4); PROTHROMBIN TIME (TEST) 15.6 SECONDS (9.5-11.5)
[2016-06-22 07:25] LABS: ANION GAP 20.3 (7.0-16.0); BILIRUBIN,TOTAL 0.9 mg/dL (0.3-1.0); BUN/CREATININE RATIO 8.2; CALCIUM SERUM 8.7 mg/dL (8.6-10.3); CARBON DIOXIDE 21.9 mEq/L (21.0-31.0); POTASSIUM SERUM 5.2 mEq/L (3.5-5.1)
[2016-06-22 07:48] LABS: CREATININE - SERUM 6.1 mg/dL (0.7-1.3)
[2016-06-22 08:17] LABS: BAND NEUTROPHILE 1 % (0-10); EOSINOPHIL 4 % (0-5); NEUTROPHILS 72 % (40-80); TOTAL CELLS COUNTED 100
[2016-06-22 08:18] LABS: PLATELET ESTIMATE DECREASED PLATELETS (NORMAL); PLATELET MORPHOLOGY GIANT PLATELETS SEEN (NORMAL)
[2016-06-22] MEDS: Ferrous Sulfate 325 MG TAB PO SCH ×3 (08:34→21:44)
[2016-06-22] MEDS: Calcium Carb/Vit D 500 mg/200 U Tab PO SCH (08:34)
[2016-06-22] MEDS: NIFEdipine 30 mg ER Tab PO SCH ×2 (08:39→16:17)
--- NOTE | 2016-06-22 10:20 | Pathology Report ---
[id number] Collection date: 06/21/2016 Surgeon: Dr. Rosalie Palmer Specimen description: Antrum biopsy Gross description: Received in formalin is a single fragment of parra soft tissue measuring 0.2 cm in greatest dimension. Microscopic description: The histologic sections show gastric mucosa with mild chronic inflammation present consisting of lymphocytes and plasma cells. The Giemsa stain shows no evidence for Helicobacter Pylori. Diagnosis: 1. Mild chronic gastritis, antrum biopsy. 2. The Giemsa stain is negative for Helicobacter Pylori. [facility]# [id number] [facility] [place]
--- NOTE | 2016-06-22 11:51 | General Progress Note ---
Subjective - Review of Systems Service Date: 06/22/16 Subjective: alert, no N/V, no obvious bleed Objective - Results Result Diagrams: 06/22/16 06:05 06/22/16 06:05 Recent Labs: Laboratory Last Values WBC 6.4 Th/cmm (4.8-10.8) 06/22/16 06:05 RBC 4.23 Mil/cmm (4.30-5.70) L 06/22/16 06:05 Hgb 12.5 gm/dL (13.2-17.3) L 06/22/16 06:05 Hct 37.9 % (39.0-49.0) L 06/22/16 06:05 MCV 89.4 fl (80-99) 06/22/16 06:05 MCH 29.5 pg (26.0-30.0) 06/22/16 06:05 MCHC Differential 33.0 pg (28.0-36.0) 06/22/16 06:05 RDW 16.2 % (11.5-20.0) 06/22/16 06:05 Plt Count 96 Th/cmm (150-400) L 06/22/16 06:05 MPV 9.4 fl 06/22/16 06:05 Neutrophils % 74.8 % (40.0-80.0) 06/21/16 05:54 Band Neutrophils % 1 % (0-10) 06/22/16 06:05 Lymphocytes % 12.3 % (20.0-50.0) L 06/21/16 05:54 Monocytes % 10.4 % (2.0-10.0) H 06/21/16 05:54 Eosinophils % 2.5 % (0.0-5.0) 06/21/16 05:54 Basophils % 0.0 % (0.0-2.0) 06/21/16 05:54 Neutrophils (Manual) 72 % (40-80) 06/22/16 06:05 Lymphocytes 13 % (20-50) L 06/22/16 06:05 Monocytes 10 % (2-10) 06/22/16 06:05 Eosinophils 4 % (0-5) 06/22/16 06:05 Basophils 1 % (0-3) 06/19/16 20:14 Nucleated RBCs 1.0 % (0-0) H 06/22/16 06:05 Platelet Estimate DECREASED PLATELETS (NORMAL) 06/22/16 06:05 Platelet Morphology GIANT PLATELETS SEEN (NORMAL) 06/22/16 06:05 Anisocytosis 1+ 06/19/16 20:14 RBC Morph Micro Appear NORMAL (NORMAL) 06/22/16 06:05 PT 15.6 SECONDS (9.5-11.5) H 06/22/16 06:05 INR 1.54 (0.5-1.4) H 06/22/16 06:05 Sodium 136 mEq/L (136-145) 06/22/16 06:05 Potassium 5.2 mEq/L (3.5-5.1) H 06/22/16 06:05 Chloride 99 mEq/L (98-107) 06/22/16 06:05 Carbon Dioxide 21.9 mEq/L (21.0-31.0) 06/22/16 06:05 Anion Gap 20.3 (7.0-16.0) H 06/22/16 06:05 BUN 50 mg/dL (7-25) H 06/22/16 06:05 Creatinine 6.1 mg/dL (0.7-1.3) H* 06/22/16 06:05 Est GFR ( Amer) 12.7 ml/min (>90) 06/22/16 06:05 Est GFR (Non-Af Amer) 10.5 ml/min 06/22/16 06:05 BUN/Creatinine Ratio 8.2 06/22/16 06:05 Glucose 138 mg/dL (70-105) H 06/22/16 06:05 POC Glucose 167 MG/DL (70 - 105) H 06/22/16 11:38 Hemoglobin A1c % 6.9 % (4.0-6.0) H 06/20/16 09:56 Whole Bld Lactic Acid 0.41 mmol/L (0.60-2.00) L 06/19/16 20:48 Calcium 8.7 mg/dL (8.6-10.3) 06/22/16 06:05 Phosphorus 3.8 mg/dL (2.5-5.0) 06/21/16 05:54 Magnesium 2.1 mg/dL (1.9-2.7) 06/20/16 09:56 Total Bilirubin 0.9 mg/dL (0.3-1.0) 06/22/16 06:05 AST 16 U/L (13-39) 06/22/16 06:05 ALT 17 U/L (7-52) 06/22/16 06:05 Alkaline Phosphatase 216 U/L (34-104) H 06/22/16 06:05 Total Protein 7.2 gm/dL (6.0-8.3) 06/22/16 06:05 Albumin 3.5 gm/dL (4.2-5.5) L 06/22/16 06:05 Globulin 3.7 gm/dL 06/22/16 06:05 Albumin/Globulin Ratio 1.0 (1.0-1.8) 06/22/16 06:05 Amylase 12 U/L (29-103) L 06/20/16 09:56 Lipase 6 U/L (11-82) L 06/20/16 09:56 Blood Type A POSITIVE 06/19/16 22:54 Antibody Screen NEGATIVE 06/19/16 22:54 Crossmatch See Detail 06/19/16 22:54 - Physical Exam Vitals and I&O: Vital Signs Temp 98.2 F 06/22/16 04:00 Pulse 80 06/22/16 09:32 Resp 19 06/22/16 04:00 BP 166/77 06/22/16 09:32 Pulse Ox 95 06/22/16 04:00 Intake & Output 06/21/16 06/22/16 06/22/16 18:59 06:59 18:59 Intake Total 300 120 Output Total 0 Balance 300 120 Intake: Oral 300 120 Output: Urine 0 Other: # Bowel Movements 0 1 Active Medications: Current Medications Acetaminophen (Tylenol) 650 mg PO Q4H PRN PRN Reason: Pain (Mild) AND TEMP >101 Stop: 08/18/16 21:33 Calcium Acetate (Phoslo) 2,668 mg PO TIDWM [facility] Stop: 08/19/16 07:59 Last Admin: 06/22/16 08:34 Dose: 2,668 mg Calcium/Vitamin D (Oscal W/Vitamin D) 1 tab PO DAILY [facility] Stop: 08/19/16 08:59 Last Admin: 06/22/16 08:34 Dose: 1 tab Carvedilol (Coreg) 6.25 mg PO BID [facility] Stop: 08/19/16 08:59 Last Admin: 06/21/16 16:44 Dose: 6.25 mg Carvedilol (Coreg) 12.5 mg PO BID [facility] Stop: 08/19/16 16:59 Last Admin: 06/21/16 16:45 Dose: 12.5 mg Clonidine HCl (Catapres) 0.2 mg PO BID [facility] Stop: 08/19/16 08:59 Last Admin: 06/22/16 08:32 Dose: 0.2 mg Clonidine HCl (Catapres) 0.1 mg PO Q6HR PRN PRN Reason: SBP>140 Stop: 08/21/16 02:01 Last Admin: 06/22/16 02:36 Dose: 0.1 mg Docusate Sodium (Colace) 100 mg PO DAILY [facility] Stop: 08/19/16 08:59 Last Admin: 06/22/16 08:34 Dose: 100 mg Epoetin Reinaldo (Epogen) 10,000 units SUBQ MoWeFr [facility] Stop: 08/20/16 15:12 Ferrous Sulfate (Iron) 325 mg PO TID [facility] Stop: 08/19/16 15:14 Last Admin: 06/22/16 08:34 Dose: 325 mg Guaifenesin/Dextromethorphan (Robitussin Dm) 10 ml PO Q6HR PRN PRN Reason: Cough Stop: 08/18/16 21:33 Last Admin: 06/21/16 23:57 Dose: 10 ml Insulin Aspart (Novolog Insulin Sliding Scale) 0 units SUBQ ACHS DREW PRN Reason: Protocol Stop: 08/19/16 07:29 Last Admin: 06/22/16 06:36 Dose: Not Given Insulin Detemir (Levemir Insulin) 15 units SUBQ HS [facility] Stop: 08/18/16 20:59 Last Admin: 06/21/16 21:08 Dose: 15 unit Metoclopramide HCl (Reglan) 5 mg IVP Q8HR [facility] Stop: 08/20/16 12:59 Last Admin: 06/22/16 06:13 Dose: 5 mg Miscellaneous (Clinical Monitoring) 1 ea MC PRN PRN PRN Reason: RENAL DOSING Stop: 08/20/16 08:19 Nifedipine (Procardia Xl) 60 mg PO BID [facility] Stop: 08/19/16 08:59 Last Admin: 06/22/16 08:39 Dose: 60 mg Ondansetron HCl (Zofran) 4 mg IV Q6H PRN PRN Reason: Nausea / Vomiting Stop: 08/20/16 19:33 Last Admin: 06/21/16 21:11 Dose: 4 mg Pantoprazole Sodium (Protonix) 40 mg IVP DAILY [facility] Stop: 08/19/16 08:59 Last Admin: 06/22/16 08:34 Dose: 40 mg Tamsulosin HCl (Flomax) 0.4 mg PO HS [facility] Stop: 08/19/16 20:59 Last Admin: 06/21/16 21:11 Dose: 0.4 mg Tramadol HCl (Ultram) 50 mg PO Q6H PRN PRN Reason: Pain Stop: 08/18/16 21:33 Last Admin: 06/21/16 02:31 Dose: 50 mg Warfarin Sodium 2.5 mg/ (Warfarin Sodium 4 mg) 6.5 mg PO 1400 [facility] Stop: 08/19/16 13:59 Last Admin: 06/21/16 15:00 Dose: 6.5 mg General: Alert, No acute distress HEENT: Atraumatic, Mucous membr. moist/pink Neck: Supple, +2 carotid pulse wo bruit Cardiovascular: Regular rate, Normal S1, Normal S2 Lungs: Clear to auscultation, Other Abdomen: Bowel sounds, Soft Extremities: no Edema Neurological: Sensation intact Skin: no Rash - Procedures Procedures: Procedures Procedure Code Date EGD BIOPSY SINGLE/MULTIPLE 85957 06/19/16 EXCISION OF STOMACH, ENDO, DIAGN [id number] 06/19/16 HEMODIALYSIS 39.95 01/02/15 INSERT INDWELLING CATH 57.94 10/18/14 INSERT TEMP BLADDER CATH 95703 10/18/14 Assessment/Plan - Problem List Patient Problems: All Active Problems Bronchitis, acute (Acute) J20.9 Cloudy urine (Acute) R82.90 Nausea (Acute) R11.0 Renal failure (Acute) Urinary retention (Acute) R33.9 - Assessment Assessment: esrd on hd severe anemia on ckd, possible gi bleed chronic A. Fib type 2 dm ess htn legally blind thrombocytopenia hyperkalemia - Plan Plan: schedule for hd today, no heparin hgb/hct 12.5/37.9 monitor cbc closely kayexalate
[2016-06-22] MEDS: Guaifenesin DM 10 ML UDC PO PRN (12:04)
[2016-06-22 12:21] LABS: HEP B CORE IGM Negative (Negative); HEP C ANTIBODY <0.1 s/co ratio (0.0-0.9)
[2016-06-22 13:12] LABS: FERRITIN 1145 ng/mL (30-400); FOLIC ACID >20.0 ng/mL (>3.0); IRON SATURATION 18 % (15-55); TIBC (LCI) 165 ug/dL (250-450); UIBC 135 ug/dL (111-343)
[2016-06-22] MEDS: WARFARIN SODIUM PO SCH (13:34)
[2016-06-22] MEDS ORDERED: Influenza Vaccine 0.5 mL Syr IM ONE (13:42)
[2016-06-22] MEDS: Insulin Detemir 100 units/mL 10mL Vial SUBQ SCH (21:58)
[2016-06-23] MEDS: Metoclopramide 5 mg/mL 2mL Vial IVP SCH ×2 (05:22→13:33)
[2016-06-23] MEDS: Guaifenesin DM 10 ML UDC PO PRN (05:23)
[2016-06-23] MEDS: INSULIN ASPART SLIDING SCALE 100 UNITS/ML UNIT SUBQ SCH ×3 (06:46→17:46)
[2016-06-23 07:21] LABS: % EOSINOPHILS 1.3 % (0.0-5.0); % MONOCYTES 11.2 % (2.0-10.0); % NEUTROPHILS 77.5 % (40.0-80.0); HEMATOCRIT 35.4 % (39.0-49.0); HEMOGLOBIN 11.7 gm/dL (13.2-17.3); MEAN CELL VOLUME 89.4 fl (80-99); MEAN CORPUSCULAR HEMOGLOBIN 29.7 pg (26.0-30.0); MEAN CORPUSCULAR HGB CONC 33.2 pg (28.0-36.0); MEAN PLATELET VOLUME 9.6 fl; NEUTROPHILE ABSOLUTE 4.9 Th/cmm (1.8-8.0); PLATELET COUNT 94 Th/cmm (150-400); RED BLOOD COUNT 3.96 Mil/cmm (4.30-5.70); WHITE BLOOD COUNT 6.3 Th/cmm (4.8-10.8)
[2016-06-23 07:39] LABS: ALB/GLOB RATIO 1.1 (1.0-1.8); ANION GAP 16.5 (7.0-16.0); BUN/CREATININE RATIO 6.5; CALCIUM SERUM 8.8 mg/dL (8.6-10.3); CARBON DIOXIDE 26.3 mEq/L (21.0-31.0); POTASSIUM SERUM 3.8 mEq/L (3.5-5.1)
[2016-06-23 07:40] LABS: INR 1.79 (0.5-1.4); PROTHROMBIN TIME (TEST) 18.4 SECONDS (9.5-11.5)
[2016-06-23 07:41] LABS: ALB/GLOB RATIO 1.1 (1.0-1.8); BILIRUBIN,DIRECT 0.37 mg/dL (0.0-0.2)
[2016-06-23 08:04] LABS: CREATININE - SERUM 4.9 mg/dL (0.7-1.3)
[2016-06-23] MEDS: Calcium Carb/Vit D 500 mg/200 U Tab PO SCH (09:28)
[2016-06-23] MEDS: NIFEdipine 30 mg ER Tab PO SCH ×2 (09:30→16:23)
[2016-06-23] MEDS: Ferrous Sulfate 325 MG TAB PO SCH ×2 (09:30→13:33)
--- NOTE | 2016-06-23 13:12 | Diagnostic Imaging Report ---
Ultrasound abdomen HISTORY: Elevated liver function tests, cirrhosis, rule out liver mass COMPARISON: None Technique: Sonography of the abdomen was performed in multiple planes. FINDINGS: The liver demonstrates a mildly heterogeneous echotexture. Note exam is limited due to bowel gas. The liver measures 17.8 cm. No discrete focal lesions identified. No evidence of gallstones. The gallbladder wall measures 4 mm. The common bile that was not visualized. The right kidney measures 10.8 cm. The left kidney measures 11.1 cm. There is mild left hydronephrosis. No focal lesions identified. The spleen measures 14.1 cm. The pancreas was not well-visualized due to bowel gas. IMPRESSION: Limited exam due to body habitus and bowel gas Mild hepatomegaly is noted with mild heterogeneity which may reflect underlying hepatocellular disease. Please correlate with liver function tests. If there is clinical concern for a mass CT examination may also be obtained for further assessment. Mildly prominent gallbladder wall, nonspecific and may be due to underdistention. No evidence of gallstones Mild splenomegaly. Mild left hydronephrosis. If indicated CT would further clarify.
[2016-06-23] MEDS: WARFARIN SODIUM PO SCH (13:33)
--- NOTE | 2016-06-23 14:09 | General Progress Note ---
Subjective - Review of Systems Service Date: 06/23/16 Subjective: alert, no N/V, no obvious bleed Objective - Results Result Diagrams: 06/23/16 06:10 06/23/16 06:10 Recent Labs: Laboratory Last Values WBC 6.3 Th/cmm (4.8-10.8) 06/23/16 06:10 RBC 3.96 Mil/cmm (4.30-5.70) L 06/23/16 06:10 Hgb 11.7 gm/dL (13.2-17.3) L 06/23/16 06:10 Hct 35.4 % (39.0-49.0) L 06/23/16 06:10 MCV 89.4 fl (80-99) 06/23/16 06:10 MCH 29.7 pg (26.0-30.0) 06/23/16 06:10 MCHC Differential 33.2 pg (28.0-36.0) 06/23/16 06:10 RDW 16.0 % (11.5-20.0) 06/23/16 06:10 Plt Count 94 Th/cmm (150-400) L 06/23/16 06:10 MPV 9.6 fl 06/23/16 06:10 Neutrophils % 77.5 % (40.0-80.0) 06/23/16 06:10 Band Neutrophils % 1 % (0-10) 06/22/16 06:05 Lymphocytes % 10.0 % (20.0-50.0) L 06/23/16 06:10 Monocytes % 11.2 % (2.0-10.0) H 06/23/16 06:10 Eosinophils % 1.3 % (0.0-5.0) 06/23/16 06:10 Basophils % 0.0 % (0.0-2.0) 06/23/16 06:10 Neutrophils (Manual) 72 % (40-80) 06/22/16 06:05 Lymphocytes 13 % (20-50) L 06/22/16 06:05 Monocytes 10 % (2-10) 06/22/16 06:05 Eosinophils 4 % (0-5) 06/22/16 06:05 Basophils 1 % (0-3) 06/19/16 20:14 Nucleated RBCs 1.0 % (0-0) H 06/22/16 06:05 Platelet Estimate DECREASED PLATELETS (NORMAL) 06/22/16 06:05 Platelet Morphology GIANT PLATELETS SEEN (NORMAL) 06/22/16 06:05 Anisocytosis 1+ 06/19/16 20:14 RBC Morph Micro Appear NORMAL (NORMAL) 06/22/16 06:05 PT 18.4 SECONDS (9.5-11.5) H 06/23/16 06:10 INR 1.79 (0.5-1.4) H 06/23/16 06:10 Sodium 136 mEq/L (136-145) 06/23/16 06:10 Potassium 3.8 mEq/L (3.5-5.1) 06/23/16 06:10 Chloride 97 mEq/L (98-107) L 06/23/16 06:10 Carbon Dioxide 26.3 mEq/L (21.0-31.0) 06/23/16 06:10 Anion Gap 16.5 (7.0-16.0) H 06/23/16 06:10 BUN 32 mg/dL (7-25) H 06/23/16 06:10 Creatinine 4.9 mg/dL (0.7-1.3) H* 06/23/16 06:10 Est GFR ( Amer) 16.3 ml/min (>90) 06/23/16 06:10 Est GFR (Non-Af Amer) 13.5 ml/min 06/23/16 06:10 BUN/Creatinine Ratio 6.5 06/23/16 06:10 Glucose 201 mg/dL (70-105) H 06/23/16 06:10 POC Glucose 208 MG/DL (70 - 105) H 06/23/16 11:16 Hemoglobin A1c % 6.9 % (4.0-6.0) H 06/20/16 09:56 Whole Bld Lactic Acid 0.41 mmol/L (0.60-2.00) L 06/19/16 20:48 Calcium 8.8 mg/dL (8.6-10.3) 06/23/16 06:10 Phosphorus 3.8 mg/dL (2.5-5.0) 06/21/16 05:54 Magnesium 2.1 mg/dL (1.9-2.7) 06/20/16 09:56 Iron 30 ug/dL (38-169) L 06/21/16 09:00 TIBC 165 ug/dL (250-450) L 06/21/16 09:00 Iron Saturation 18 % (15-55) 06/21/16 09:00 Unsaturated IBC 135 ug/dL (111-343) 06/21/16 09:00 Ferritin 1145 ng/mL (30-400) H 06/21/16 09:00 Total Bilirubin 1.0 mg/dL (0.3-1.0) 06/23/16 06:10 Direct Bilirubin 0.37 mg/dL (0.0-0.2) H 06/23/16 06:10 AST 13 U/L (13-39) 06/23/16 06:10 ALT 14 U/L (7-52) 06/23/16 06:10 Alkaline Phosphatase 229 U/L (34-104) H 06/23/16 06:10 Total Protein 6.7 gm/dL (6.0-8.3) 06/23/16 06:10 Albumin 3.5 gm/dL (4.2-5.5) L 06/23/16 06:10 Globulin 3.2 gm/dL 06/23/16 06:10 Albumin/Globulin Ratio 1.1 (1.0-1.8) 06/23/16 06:10 Amylase 12 U/L (29-103) L 06/20/16 09:56 Lipase 6 U/L (11-82) L 06/20/16 09:56 Vitamin B12 839 pg/mL (211-946) 06/21/16 09:00 Folic Acid >20.0 ng/mL (>3.0) 06/21/16 09:00 Helicobacter pylori Ab NEGATIVE (NEGATIVE) 06/21/16 11:35 Hepatitis A IgM Ab Negative (Negative) 06/21/16 07:00 Hep Bs Antigen Negative (Negative) 06/21/16 07:00 Hep B Core IgM Ab Negative (Negative) 06/21/16 07:00 Hepatitis C Antibody <0.1 s/co ratio (0.0-0.9) 06/21/16 07:00 Blood Type A POSITIVE 06/19/16 22:54 Antibody Screen NEGATIVE 06/19/16 22:54 Crossmatch See Detail 06/19/16 22:54 - Physical Exam Vitals and I&O: Vital Signs Temp 98.3 F 06/23/16 12:00 Pulse 73 06/23/16 12:00 Resp 19 06/23/16 12:00 BP 148/68 06/23/16 12:00 Pulse Ox 92 06/23/16 12:00 Intake & Output 06/22/16 06/23/16 06/23/16 18:59 06:59 18:59 Intake Total 200 200 Output Total 2500 Balance -2300 200 Weight (lbs) 85.956 kg Intake: Oral 200 200 Output: Urine 0 Hemodialysis 2500 Other: # Voids 0 # Bowel Movements 0 0 Active Medications: Current Medications Acetaminophen (Tylenol) 650 mg PO Q4H PRN PRN Reason: Pain (Mild) AND TEMP >101 Stop: 08/18/16 21:33 Calcium Acetate (Phoslo) 2,668 mg PO TIDWM [facility] Stop: 08/19/16 07:59 Last Admin: 06/23/16 12:07 Dose: 2,668 mg Calcium/Vitamin D (Oscal W/Vitamin D) 1 tab PO DAILY [facility] Stop: 08/19/16 08:59 Last Admin: 06/23/16 09:28 Dose: Not Given Carvedilol (Coreg) 6.25 mg PO BID [facility] Stop: 08/19/16 08:59 Last Admin: 06/23/16 09:29 Dose: Not Given Carvedilol (Coreg) 12.5 mg PO BID [facility] Stop: 08/19/16 16:59 Last Admin: 06/23/16 09:29 Dose: Not Given Clonidine HCl (Catapres) 0.2 mg PO BID [facility] Stop: 08/19/16 08:59 Last Admin: 06/23/16 09:30 Dose: Not Given Clonidine HCl (Catapres) 0.1 mg PO Q6HR PRN PRN Reason: SBP>140 Stop: 08/21/16 02:01 Last Admin: 06/23/16 05:22 Dose: 0.1 mg Docusate Sodium (Colace) 100 mg PO DAILY [facility] Stop: 08/19/16 08:59 Last Admin: 06/23/16 09:30 Dose: Not Given Epoetin Reinaldo (Epogen) 10,000 units SUBQ MoWeFr [facility] Stop: 08/20/16 15:12 Ferrous Sulfate (Iron) 325 mg PO TID DREW Stop: 08/19/16 15:14 Last Admin: 06/23/16 13:33 Dose: 325 mg Guaifenesin/Dextromethorphan (Robitussin Dm) 10 ml PO Q6HR PRN PRN Reason: Cough Stop: 08/18/16 21:33 Last Admin: 06/23/16 05:23 Dose: 10 ml Insulin Aspart (Novolog Insulin Sliding Scale) 0 units SUBQ ACHS DREW PRN Reason: Protocol Stop: 08/19/16 07:29 Last Admin: 06/23/16 12:07 Dose: 2 units Insulin Detemir (Levemir Insulin) 15 units SUBQ HS DREW Stop: 08/18/16 20:59 Last Admin: 06/22/16 21:58 Dose: 15 unit Metoclopramide HCl (Reglan) 5 mg IVP Q8HR DREW Stop: 08/20/16 12:59 Last Admin: 06/23/16 13:33 Dose: 5 mg Miscellaneous (Clinical Monitoring) 1 ea MC PRN PRN PRN Reason: RENAL DOSING Stop: 08/20/16 08:19 Nifedipine (Procardia Xl) 60 mg PO BID [facility] Stop: 08/19/16 08:59 Last Admin: 06/23/16 09:30 Dose: Not Given Ondansetron HCl (Zofran) 4 mg IV Q6H PRN PRN Reason: Nausea / Vomiting Stop: 08/20/16 19:33 Last Admin: 06/21/16 21:11 Dose: 4 mg Pantoprazole Sodium (Protonix) 40 mg IVP DAILY DREW Stop: 08/19/16 08:59 Last Admin: 06/23/16 09:45 Dose: 40 mg Tamsulosin HCl (Flomax) 0.4 mg PO HS [facility] Stop: 08/19/16 20:59 Last Admin: 06/22/16 21:44 Dose: 0.4 mg Tramadol HCl (Ultram) 50 mg PO Q6H PRN PRN Reason: Pain Stop: 08/18/16 21:33 Last Admin: 06/21/16 02:31 Dose: 50 mg Warfarin Sodium 2.5 mg/ (Warfarin Sodium 4 mg) 6.5 mg PO 1400 [facility] Stop: 08/19/16 13:59 Last Admin: 06/23/16 13:33 Dose: 6.5 mg General: Alert, No acute distress HEENT: Atraumatic, Mucous membr. moist/pink Neck: Supple, +2 carotid pulse wo bruit Cardiovascular: Regular rate, Normal S1, Normal S2 Lungs: Clear to auscultation Abdomen: Bowel sounds, Soft Extremities: no Edema Neurological: Sensation intact Skin: no Rash Psych/Mental Status: Mental status NL, Mood NL - Procedures Procedures: Procedures Procedure Code Date EGD BIOPSY SINGLE/MULTIPLE 15624 06/19/16 EXCISION OF STOMACH, ENDO, DIAGN [id number] 06/19/16 HEMODIALYSIS 39.95 01/02/15 INSERT INDWELLING CATH 57.94 10/18/14 INSERT TEMP BLADDER CATH 20886 10/18/14 Assessment/Plan - Problem List Patient Problems: All Active Problems Bronchitis, acute (Acute) J20.9 Cloudy urine (Acute) R82.90 Nausea (Acute) R11.0 Renal failure (Acute) Urinary retention (Acute) R33.9 - Assessment Assessment: esrd on hd severe anemia on ckd, possible gi bleed chronic A. Fib type 2 dm ess htn legally blind thrombocytopenia - Plan Plan: schedule for hd in am, no heparin hgb/hct 11.7/35.4 monitor cbc closely
[2016-06-23] MEDS: Epoetin Alfa 20000 Units/mL Vial SUBQ SCH (17:46)
--- NOTE | 2016-06-23 20:01 | General Progress Note ---
Subjective - Review of Systems Service Date: 06/23/16 Subjective: PATIENT SEEN AND EXAMINED EARLIER. DELAYED NOTE ENTRY. KASSANDRA ORAL DIET. Objective - Results Result Diagrams: 06/23/16 06:10 06/23/16 06:10 Recent Labs: Laboratory Last Values WBC 6.3 Th/cmm (4.8-10.8) 06/23/16 06:10 RBC 3.96 Mil/cmm (4.30-5.70) L 06/23/16 06:10 Hgb 11.7 gm/dL (13.2-17.3) L 06/23/16 06:10 Hct 35.4 % (39.0-49.0) L 06/23/16 06:10 MCV 89.4 fl (80-99) 06/23/16 06:10 MCH 29.7 pg (26.0-30.0) 06/23/16 06:10 MCHC Differential 33.2 pg (28.0-36.0) 06/23/16 06:10 RDW 16.0 % (11.5-20.0) 06/23/16 06:10 Plt Count 94 Th/cmm (150-400) L 06/23/16 06:10 MPV 9.6 fl 06/23/16 06:10 Neutrophils % 77.5 % (40.0-80.0) 06/23/16 06:10 Band Neutrophils % 1 % (0-10) 06/22/16 06:05 Lymphocytes % 10.0 % (20.0-50.0) L 06/23/16 06:10 Monocytes % 11.2 % (2.0-10.0) H 06/23/16 06:10 Eosinophils % 1.3 % (0.0-5.0) 06/23/16 06:10 Basophils % 0.0 % (0.0-2.0) 06/23/16 06:10 Neutrophils (Manual) 72 % (40-80) 06/22/16 06:05 Lymphocytes 13 % (20-50) L 06/22/16 06:05 Monocytes 10 % (2-10) 06/22/16 06:05 Eosinophils 4 % (0-5) 06/22/16 06:05 Basophils 1 % (0-3) 06/19/16 20:14 Nucleated RBCs 1.0 % (0-0) H 06/22/16 06:05 Platelet Estimate DECREASED PLATELETS (NORMAL) 06/22/16 06:05 Platelet Morphology GIANT PLATELETS SEEN (NORMAL) 06/22/16 06:05 Anisocytosis 1+ 06/19/16 20:14 RBC Morph Micro Appear NORMAL (NORMAL) 06/22/16 06:05 PT 18.4 SECONDS (9.5-11.5) H 06/23/16 06:10 INR 1.79 (0.5-1.4) H 06/23/16 06:10 Sodium 136 mEq/L (136-145) 06/23/16 06:10 Potassium 3.8 mEq/L (3.5-5.1) 06/23/16 06:10 Chloride 97 mEq/L (98-107) L 06/23/16 06:10 Carbon Dioxide 26.3 mEq/L (21.0-31.0) 06/23/16 06:10 Anion Gap 16.5 (7.0-16.0) H 06/23/16 06:10 BUN 32 mg/dL (7-25) H 06/23/16 06:10 Creatinine 4.9 mg/dL (0.7-1.3) H* 06/23/16 06:10 Est GFR ( Amer) 16.3 ml/min (>90) 06/23/16 06:10 Est GFR (Non-Af Amer) 13.5 ml/min 06/23/16 06:10 BUN/Creatinine Ratio 6.5 06/23/16 06:10 Glucose 201 mg/dL (70-105) H 06/23/16 06:10 POC Glucose 222 MG/DL (70 - 105) H 06/23/16 16:29 Hemoglobin A1c % 6.9 % (4.0-6.0) H 06/20/16 09:56 Whole Bld Lactic Acid 0.41 mmol/L (0.60-2.00) L 06/19/16 20:48 Calcium 8.8 mg/dL (8.6-10.3) 06/23/16 06:10 Phosphorus 3.8 mg/dL (2.5-5.0) 06/21/16 05:54 Magnesium 2.1 mg/dL (1.9-2.7) 06/20/16 09:56 Iron 30 ug/dL (38-169) L 06/21/16 09:00 TIBC 165 ug/dL (250-450) L 06/21/16 09:00 Iron Saturation 18 % (15-55) 06/21/16 09:00 Unsaturated IBC 135 ug/dL (111-343) 06/21/16 09:00 Ferritin 1145 ng/mL (30-400) H 06/21/16 09:00 Total Bilirubin 1.0 mg/dL (0.3-1.0) 06/23/16 06:10 Direct Bilirubin 0.37 mg/dL (0.0-0.2) H 06/23/16 06:10 AST 13 U/L (13-39) 06/23/16 06:10 ALT 14 U/L (7-52) 06/23/16 06:10 Alkaline Phosphatase 229 U/L (34-104) H 06/23/16 06:10 Total Protein 6.7 gm/dL (6.0-8.3) 06/23/16 06:10 Albumin 3.5 gm/dL (4.2-5.5) L 06/23/16 06:10 Globulin 3.2 gm/dL 06/23/16 06:10 Albumin/Globulin Ratio 1.1 (1.0-1.8) 06/23/16 06:10 Amylase 12 U/L (29-103) L 06/20/16 09:56 Lipase 6 U/L (11-82) L 06/20/16 09:56 Vitamin B12 839 pg/mL (211-946) 06/21/16 09:00 Folic Acid >20.0 ng/mL (>3.0) 06/21/16 09:00 Helicobacter pylori Ab NEGATIVE (NEGATIVE) 06/21/16 11:35 Hepatitis A IgM Ab Negative (Negative) 06/21/16 07:00 Hep Bs Antigen Negative (Negative) 06/21/16 07:00 Hep B Core IgM Ab Negative (Negative) 06/21/16 07:00 Hepatitis C Antibody <0.1 s/co ratio (0.0-0.9) 06/21/16 07:00 Blood Type A POSITIVE 06/19/16 22:54 Antibody Screen NEGATIVE 06/19/16 22:54 Crossmatch See Detail 06/19/16 22:54 - Physical Exam Vitals and I&O: Vital Signs Temp 98.4 F 06/23/16 16:53 Pulse 70 06/23/16 17:23 Resp 19 06/23/16 16:53 BP 136/70 06/23/16 17:23 Pulse Ox 93 06/23/16 16:53 Intake & Output 06/23/16 06/23/16 06/24/16 06:59 18:59 06:59 Intake Total 200 200 Output Total 2 Balance 200 198 Intake: Oral 200 200 Output: Urine 2 Other: # Voids 0 # Bowel Movements 0 General: No acute distress HEENT: Atraumatic Neck: Supple Cardiovascular: Regular rate Lungs: Clear to auscultation Abdomen: Bowel sounds, Soft - Procedures Procedures: Procedures Procedure Code Date EGD BIOPSY SINGLE/MULTIPLE 34342 06/19/16 EXCISION OF STOMACH, ENDO, DIAGN [id number] 06/19/16 HEMODIALYSIS 39.95 01/02/15 INSERT INDWELLING CATH 57.94 10/18/14 INSERT TEMP BLADDER CATH 11067 10/18/14 Assessment/Plan - Problem List Patient Problems: All Active Problems Bronchitis, acute (Acute) J20.9 Cloudy urine (Acute) R82.90 Nausea (Acute) R11.0 Renal failure (Acute) Urinary retention (Acute) R33.9 - Assessment Assessment: 1. N/V - DUE TO GASTROPARESIS SEEN ON EGD. EGD ALSO SHOWED GASTRITIS. 2. DM. 3. MILD ANEMIA - LIKELY DUE TO CKD AND ACD. 4. ESRD - HD DEP. - Plan Plan: 1. PROTONIX. 2. REGLAN. 3. DM CONTROL. 4. DIET KASSANDRA.
--- NOTE | 2016-06-24 20:33 | Discharge Summary ---
PRELIMINARY DIAGNOSES: 1. Anemia with hemoglobin of 6.5. 2. Hypokalemia with potassium of 1.7. 3. End-stage renal disease, on hemodialysis. 4. Rule out sepsis. 5. Diabetes mellitus. 6. Urinary tract infection. 7. Hypertension. 8. Gastroesophageal reflux disease. 9. Hypocalcemia. 10. Pancytopenia. 11. Intractable nausea and vomiting. DISCHARGE DIAGNOSES: 1. End-stage renal disease, on hemodialysis. 2. Anemia, now stable. 3. Hypokalemia, now corrected. 4. Diabetes mellitus. 5. Hypertension. 6. Gastroesophageal reflux disease. 7. Hypocalcemia, now resolved. 8. Pancytopenia, now improved. 9. Intractable nausea and vomiting, now improved. HISTORY OF PRESENT ILLNESS: This is a 50-year-old male who presents to [facility] ER, transferred from alf facility due to increased fatigue, weakness, nausea, and vomiting noted by the staff members. The patient has a previous history of end-stage renal disease, on hemodialysis; also, diabetes mellitus type 2; has history of blindness secondary to his diabetes. He also has a left BKA and the right AKA. He has a history of peripheral vascular disease, hypertension, anemia, and has a history of hypokalemia as well with history of gastroesophageal reflux disease. He has history of cardiopulmonary arrest. While in the ER, his initial lab work revealed white count of 3.2, hemoglobin 6.5, hematocrit 19, and platelets of 47,000. Chem-7, potassium was noted to be low at 1.7. Sodium was 142, chloride 124, bicarbonate 13, BUN 14, creatinine 1.6, and glucose was 122. His initial calcium was noted to be very low at 4.0. LABORATORY DATA: AST 9, ALT 8, alkaline phosphatase 108, and albumin of 1.6. HOSPITAL COURSE: The patient was given 2 units of packed blood cells, during his initial day. In the hospital, the patient also received 80 mEq of KCl p.o., which was repeated the following day. His potassium level initially was noted to be at 1.79. This has improved to 3.8. His hemoglobin initially was 6.5 on 06/19/2016 after 2 units of packed red blood cells. His repeat H and H on 06/20/2016 was 12.5. The patient had been seen and evaluated by Dr. Mccartney who ordered initially an abdominal ultrasound. This revealed a mild hepatomegaly with mild , which revealed some underlying hepatocellular disease and did show prominent gallbladder, which was nonspecific and mild hydronephrosis. The patient underwent an upper endoscopy during his hospital stay, which showed evidence of moderate gastroparesis. The patient was placed on Reglan, which helped improve with his symptoms while in the hospital. His EGD did also reveal mild gastritis and some mild retained fluid in the esophagus. The patient had a biopsy of his stomach during the endoscopy. The results of the biopsy was negative for H. pylori. The patient was seen and evaluated by Dr. Hammer who managed his dialysis during his hospital stay. The patient also was seen by Dr. Chen for pancytopenia. Lab work was ordered during his hospital stay. Results at this time still pending. However, the patient did improve and was subsequently transferred back to his alf facility to continue current orders. JOB# [id number]
[2016-06-25 12:14] LABS: CERULOPLASMIN 25.7 mg/dL (16.0-31.0)
== END 2016-06-23 06:50 | DRG 813 ==
LOC: ER 18:26 → MSI 20:55 → TELE 06-21 21:50
PROVIDERS: ADMIT Family Medicine; ATTEND Family Medicine
PROC: 30233N1 Transfusion of Nonautologous Red Blood Cells into Peripheral Vein, Percutaneous Approach (ICD-10-PCS; 2016-06-20)
PROC: 0DB68ZX Excision of Stomach, Via Natural or Artificial Opening Endoscopic, Diagnostic (ICD-10-PCS; principal; 2016-06-21)
PROC: 5A1D60Z (ICD-10-PCS; 2016-06-22)
DX: D69.59 Other secondary thrombocytopenia (principal); E43 Unspecified severe protein-calorie malnutrition; D61.818 Other pancytopenia; N18.6 End stage renal disease; K31.84 Gastroparesis; I12.0 Hypertensive chronic kidney disease with stage 5 chronic kidney disease or end stage renal disease; E11.43 Type 2 diabetes mellitus with diabetic autonomic (poly)neuropathy; E83.51 Hypocalcemia; E11.22 Type 2 diabetes mellitus with diabetic chronic kidney disease; D63.1 Anemia in chronic kidney disease; I48.2 Chronic atrial fibrillation; E87.6 Hypokalemia; K21.9 Gastro-esophageal reflux disease without esophagitis; E11.319 Type 2 diabetes mellitus with unspecified diabetic retinopathy without macular edema; H54.8 Legal blindness, as defined in USA; K29.70 Gastritis, unspecified, without bleeding; E11.618 Type 2 diabetes mellitus with other diabetic arthropathy; E11.51 Type 2 diabetes mellitus with diabetic peripheral angiopathy without gangrene; R05 Cough; Y92.89 Other specified places as the place of occurrence of the external cause; J20.9 Acute bronchitis, unspecified; J44.9 Chronic obstructive pulmonary disease, unspecified; Z83.3 Family history of diabetes mellitus; Z82.49 Family history of ischemic heart disease and other diseases of the circulatory system; Z89.512 Acquired absence of left leg below knee; Z68.30 Body mass index [BMI] 30.0-30.9, adult; Z89.611 Acquired absence of right leg above knee; Z99.2 Dependence on renal dialysis; T45.515A Adverse effect of anticoagulants, initial encounter
CPT/HCPCS: 36415-UA; 71010-TC; 76700-TC; 80048-TC; 80053-TC; 80074-90; 80076-TC; 82103-90; 82150-TC; 82390-90; 82607-90; 82728-90; 82746-90; 82948-90; 82977-90; 83036-90; 83516-90; 83540-90; 83550-90; 83605; 83690-TC; 83735-TC; 84100-TC; 85007-TC; 85025-TC; 85027-TC; 85610-TC; 86255-90; 86850-TC; 86900-TC; 86901-TC; 86922-TC; 87338-TC; 88305-90; 88312-90; 90937; 93005; 96375; C9113; J0360; J0610; J0696; J0780; J0885; J1815; J2405; J2704; J2765; J7030; P9016; X3401; Z7610